=== PATIENT | female | born 1995 | race Caucasian/White ===

== ENCOUNTER 2017-05-08 22:09 | Inpatient (IN) | payer OTHER ==
[~2017-05-08] VITALS: Ht 177.8 cm; Wt 57.5 kg
[~2017-05-08 22:09] MED LIST: ALBU8.5H2 INHALATION
[2017-05-08 22:12] VITALS: BP 110/67; PULSE 122; RESP 16; O2SAT 100
--- NOTE | 2017-05-08 22:35 | ED.REPORT ---
HPI-Rash / Abscess Date of Service May 08, 2017 ED Provider: Dr. Mitchell Meyer The patient is a 22 year old female who presents to the ED c/o of four days of left arm swelling. Pt is a heroine user. Associated symptoms include fever. She denies chills. She was seen yesterday at the ED requesting Suboxone. Nursing Notes Stated Complaint: L ARM ABSCESS Chief Complaint: Skin Rash/Abscess Nursing Notes Reviewed: Yes Allergies: Coded Allergies: No Known Allergies (Unverified Allergy, Unknown, 05/08/17) Scheduled PRN Albuterol HFA (Proair HFA) 8.5 Gm Hfa.aer.ad 2 PUFFS INHALATION Q4H PRN PRN For Shortness of Breath General Time Seen by MD: 22:34 Chief Complaint Other (left arm swelling) Hx Obtained From: Patient Arrived By: Walk-in Onset Occurred: 4 days ago Symptom Duration: Since onset Location: : Arm Quality: Painful Severity: Current: Mild Recent Healthcare: No recent doctor visit, No recent hospitalization Similar Sx Previous: No Past Medical History Past Medical History healthy Past Surgical History None reported Smoking History Current Every Day Smoker Social History Drug Use: IV drugs, Meth Review of Systems Constitutional: Reports: Fever, Denies: Chills GI: Denies: Nausea, Vomiting Musculoskeletal: Reports: Extremity pain (left arm), Extremity swelling (left arm swelling) Skin: Reports Rash (right upper deltoid) Complete sys rev & neg: except as marked. Physical Exam Initial Vital Signs Vital Signs (First) Date Time Temp Pulse Resp B/P Pulse Ox O2 Delivery O2 Flow Rate FiO2 05/08/17 22:12 37.1 122 16 110/67 100 Room Air Initial VS: Reviewed General/Constitutional: Awake, Alert, Cooperative febrile Color / Condition: Positive: Rash present Rash / Lesion Notes: erythema and fluctuance of bulk of entire left deltoid cellulitis 10 inches by 5 inches left deltoid Rash / Lesion Location: Positive: Shoulder L Head / Eyes: Atraumatic, Normocephalic, PERRL, EOMI Respiratory / Chest: Atraumatic, Breath sounds NL, Breath sounds = bilat Heart Rate / Rhythm: Positive: Tachycardia Left Shoulder: Positive: Erythema present erythema and fluctuance of bulk of entire left deltoid left arm tense Neurologic: Oriented X3, Speech NL, No motor deficits Interpretation & Diagnostics Lab Results Interpretation Result Diagram: 05/08/17 2353 05/08/17 2353 Test 05/08/17 23:53 White Blood Count 19.5th/mm3 (3.8-10.1) Red Blood Count 4.29mil/mm3 (3.90-5.20) Hemoglobin 11.9g/dL (12.0-15.6) Hematocrit 34.3% (35.0-46.0) Mean Corpuscular Volume 80.0fL (81-100) Mean Corpuscular Hemoglobin 27.7pg (27.0-35.0) Mean Corpuscular Hemoglobin Concent 34.7% (32.0-37.0) Red Cell Distribution Width 13.2% (12.3-15.4) Platelet Count 335bil/L (150-400) Neutrophils (%) (Auto) 74.3% (40-74) Lymphocytes (%) (Auto) 14.2% (14-46) Monocytes (%) (Auto) 10.5% (4-12) Eosinophils (%) (Auto) 0.2% (0-5) Basophils (%) (Auto) 0.2% (0-3) Sodium Level 129mEq/L (134-144) Potassium Level 3.9mEq/L (3.5-5.2) Chloride Level 88mEq/L (97-108) Carbon Dioxide Level 26mmol/L (18-29) Blood Urea Nitrogen 8mg/dL (6-20) Creatinine 0.48mg/dL (0.57-1.00) Estimat Glomerular Filtration Rate 232mL/min (>59) Glucose Level 128mg/dL (60-99) Lactic Acid Level 1.1mmol/L (0.4-2.0) Calcium Level 9.1mg/dL (8.5-10.1) Total Bilirubin 0.4mg/dL (0.0-1.2) Aspartate Amino Transf (AST/SGOT) 15U/L (0-50) Alanine Aminotransferase (ALT/SGPT) 11U/L (0-32) Alkaline Phosphatase 109U/L (25-150) Total Protein 7.5g/dL (6.4-8.4) Albumin 3.4g/dL (3.4-5.0) Procedures Peripheral / EJ IV Start Peripheral / EJ IV Start: right proximal bicep IV start Time: 23:30 Procedure Performed by: ED physician IV Site: Upper arm right Skin Preparation Agent: Betadine Re-Eval/Medical Decision Med Decision/Clinical Course 2329: Pt rechecked. Trouble administering IV. Ultrasound guided IV start on right proximal bicep. 2357: Consulted with Dr. Howell. Will potentially need to admit pt for hospitalist assistance in the morning. 0129: Case discussed with Dr. Sands. She agrees with evaluation and accepts admit. I suspect that she has multiple abscesses in her left shoulder. Bedside drainage is not going to be feasible. She can barely tolerate a bedside ultrasound for the IV being placed. She is not been fasting and I do not feel comfortable sedating her at this time. She has a leukocytosis and tachycardia however she is most likely withdrawing from heroin as well. She will be admitted for broad-spectrum antibiotics and surgical consultation. I consulted with our surgeon windows phone developer and he will evaluate her in the morning. Hospitalist consulted for admission. Re-Evaluation/Progress : Time of Eval: 23:29 Re-Evaluation/Progress Note: Pt rechecked. Trouble administering IV. Ultrasound guided IV start on right proximal bicep. Consultation #1: Referral / Consult Name: Maikel Sorenson MD Consulted With: Hospitalist Call Returned at: 23:57 Note: Case discussed. Will need hospitalist assistance in the morning. Consultation #2: Referral / Consult Name: Samia Sands DO Consulted With: Hospitalist Call Returned at: 01:29 [employer]: Agrees with eval, Agrees with plan, Accepts admit Note: Case discussed. Dr. Sands accepts admit. Counseled Regarding: Diagnosis, Lab results, Need for admission Discharge & Departure Impression: Primary Impression: Cellulitis Site of cellulitis: extremity Site of cellulitis of extremity: upper extremity Laterality: left Qualified Code: L03.114 - Cellulitis of left upper limb Additional Impressions: Abscess Heroin abuse Disposition: Home Discharge Condition All VS Reviewed: Yes Condition: Stable Referrals: Kang Bravo MD (PCP) Scribe Attestation Portion of this note were transcribed by Kyra Crane. I, Dr. Meyer, personally performed the history, physical exam, and medical decision-making: I reviewed and confirmed the accuracy for the information in the transcribed note. Signed by: dora Goldstein, 05/09/17 0030 copies to: Kang Bravo MD, Todd P DO May 08, 2017 22:35 Kyra Crane May 08, 2017 22:47
[2017-05-08] MEDS ORDERED: Piperacillin-Tazo 3.375 Gm Inj 3.375 GM in Dextrose 5% Minibag Plus 50 ML IV ONE (22:40)
[2017-05-08] MEDS ORDERED: Vancomycin Inj 1,250 MG in 0.9% Sodium Chloride 250 ML IV ONE (22:48)
[2017-05-09] VITALS (13 sets, daily range): BP systolic 100–119; BP diastolic 53–72; PULSE 76–111; RESP 17–20; O2SAT 95–100
[2017-05-09] MEDS: HYDROmorphone 0.5 mg/0.5 mL iSecure Syringe IVPUSH PRN ×2 (00:02→01:00)
[2017-05-09 00:06] LABS: BASOPHILS % (AUTO) 0.2 % (0-3); EOSINOPHILS % (AUTO) 0.2 % (0-5); MONOCYTES % (AUTO) 10.5 % (4-12); Mean Corpuscular Hemoglobin 27.7 pg (27.0-35.0); NEUTROPHILS % (AUTO) 74.3 % (40-74); Platelet Count 335 bil/L (150-400)
[2017-05-09] MEDS ORDERED: Ondansetron 2 mg/mL 2 mL Inj IVPUSH PRN ×2 (01:30→09:25)
[2017-05-09] MEDS ORDERED: Polyethylene Glycol (PEG) 17 Gm Powder PO PRN (01:30)
[2017-05-09] MEDS ORDERED: Alum-Mag Hydrox-Simeth 30 mL Suspension PO PRN (01:30)
--- NOTE | 2017-05-09 02:30 | NUR ---
Admit Patient arrived at 0150 able to self transfer to bed. c/o 10/ pain, no orders at this time. Patient teaching about NPO status, states understanding. Oriented to room, accepting of items being locked up (locked up by security) and sharps container being removed (Removed by housekeeping), visiting hours, and no overnight visitors.
[2017-05-09] MEDS ORDERED: Lactated Ringer's 1,000 ML IV ONE ×2 (04:20→10:03)
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
[2017-05-09] MEDS ORDERED: Promethazine 50 mg/mL Inj IM PRN (05:10)
--- NOTE | 2017-05-09 05:53 | PCM.CONPHA ---
Subjective Date of Service: May 09, 2017 Requesting Provider: Tony Florian DO left arm pain History of Present Illness abscess/cellulitis Reason for Pharmacy Consult: Vancomycin Dosing Objective Assessment/Plan Assessment/Plan A/ - 22 y/o female with hx of IVDU admitted in for abscess/cellulitis on her arm; Vancomycin initiated for empirical coverage - Reported febrile, but afebrile at admission; WBC elevated with left shift @19.5, blood cultures, MRSA screen are pending - In ED, she received Vancomycin loading dose 1250mg, Zosyn also started and to be continued - IVF@150 mg/hr; surgery consult in the morning P/ - Give vancomycin 1G iv q8h. Trough level ordered before 4th dose @2130 today Pharmacy will continue to monitor and make necessary adjustment thank you for consulting clinical pharmacy in the care of this patient Tory Díaz May 09, 2017 05:53
[2017-05-09] MEDS: Vancomycin Inj 1,000 MG in IV Premix 1 EACH IV SCH ×2 (07:57→14:15)
[2017-05-09] MEDS: Piperacillin-Tazo 3.375 Gm Inj 3.375 GM in Dextrose 5% Minibag Plus 50 ML IV SCH ×4 (08:30→20:52)
[2017-05-09] MEDS ORDERED: Vancomycin Dose per Pharmacist XX SCH (08:30)
[2017-05-09] MEDS: Heparin 5,000 Unit/mL Inj SUBQ SCH ×2 (08:30→16:44)
[2017-05-09 08:33] LABS: BASOPHILS % (AUTO) 0.6 % (0-3); EOSINOPHILS % (AUTO) 0.3 % (0-5); MONOCYTES % (AUTO) 12.1 % (4-12); Mean Corpuscular Hemoglobin 27.3 pg (27.0-35.0); Mean Corpuscular Volume 80.9 fL (81-100); NEUTROPHILS % (AUTO) 74.7 % (40-74); Platelet Count 317 bil/L (150-400)
--- NOTE | 2017-05-09 09:05 | NUR ---
Off Unit Patient off floor to PACU via stretcher.
[2017-05-09] MEDS ORDERED: Lactated Ringer's 500 ML IV PRN (09:23)
[2017-05-09] MEDS ORDERED: Lactated Ringer's 1,000 ML IV SCH (09:23)
--- NOTE | 2017-05-09 09:23 | PCM.HPANE ---
Patient Data Date of Service: May 09, 2017 (0922) Surgeon Admitting Provider:Samia Sands DO Attending Provider:Narendra Ramírez MD Primary Care Physician:Krishna Other Provider: Reason for Visit Right Arm Cellulitis And Abscess Ht/WT & BMI Height (Feet): 5 Height (Inches): 10 Body Mass Index 18.15 Allergies Coded Allergies: No Known Allergies (Unverified Allergy, Unknown, 05/08/17) Past Anesthesia History Anesthesia History: Denies:: Abnormal Airway Diabetes History Hx Diabetes?: No MRSA MRSA: No Medications Reported Medications Albuterol HFA (Proair HFA)8.5 Gm Hfa.aer.ad2 Puffs INHALATION Q4H PRN For Shortness of Breath #1 INHALER 05/07/16 Discontinued Reported Medications [None] No Conflict Check 10/02/13 History History of ENT Problems?: No HEENT History: Denies:: Abnormal Airway Denture Type: None Teeth Condition: Within Normal Limits Hx of Heart Problems?: No Cardiovascular History: Denies:: Congestive Heart Failure Hypertension Hx of Respiratory Problem?: Yes Respiratory History: Positive for:: Dyspnea (New onset) Denies:: Asthma Pneumonia Tuberculosis Hx Neurologic Problems?: No Hx of GI Problems?: No Hx of Problems?: No Genitourinary History: Positive for:: Urinary Tract Infection Female Hx: Denies:: Currently Hx Musculoskeletal Problems?: No Psycho Social History: Positive for:: Anxiety Bipolar Disorder Hx Depression Denies:: Suicide Attempt Hx Surgeries?: No Hx Any Other Health Problems?: No History Blood Transfusions: Positive for:: Accept Blood Products? Denies:: Blood Transfusions Hx Diabetes: No Hx Alcohol Use: NoHx Substance Use: Yes (Heroin and Crystal) Smoking Status: Current Every Day Smoker Have You Smoked inLast 12 mo: YesApprox How Many Cigarettes/day: half pack a day Stop/Bang Treated for Sleep Apnea?: No S-Snoring: Do You Snore Loudly: No T-Tired: feel tired, fatigued: No O-Obsered: Observed not breath: No P-Blood Pressure: treated: No B- Body Mass Index > 35 kg/m2: No A- Age over 50: No N- Neck Large Circumference: No G- Gender Male: No TITI Total Score: 0 TITI Risk Assessment: Low Risk, <3 Yes Risk Assessment Category Category 1A: Patient has history of documented sleep apnea, and HAS NOT received any narcotic, sedative or anesthesia administration during this stay. Category 1B: Patient has history of documented sleep apnea, and HAS received any narcotic , sedative or anesthesia administration during this stay Category 2: Patient has SUSPECTED Obstructive Sleep Apnea, and HAS received any narcotic , sedative or anesthesia administration during this stay. Category 3: Patient has SUSPECTED Obstructive Sleep Apnea and HAS NOT received narcotic, sedative or anesthesia administration during this stay. Category 4: Outpatient in Procedural Areas with known sleep apnea or who screen positive for High Risk via the STOP/BANG questionnaire. Exam Exam Vital Signs Vital Signs Date Time Temp Pulse Resp B/P Pulse Ox O2 Delivery O2 Flow Rate FiO2 05/09/17 08:41 36.8 91 18 105/66 100 Room Air 05/09/17 05:02 106 05/09/17 02:04 36.9 109 18 117/72 98 Room Air General Appearance: Alert, Oriented X3, Cooperative HEENT/AIRWAY: MP 1 Lungs: Clear to Auscultation Heart: Exam Unremarkable Meds/Labs/Diagnostics Admission Meds Current Medications Piperacillin Sod/ Tazobactam Sod 3.375 gm/Dextrose/ Water 50 ml @ 100 mls/hr ONCE ONCE IV Last administered on 05/09/17 00:39; Start 05/08/17 at 22:40; Stop 05/08/17 at 23:09; Status DC Vancomycin HCl 1250 mg/Sodium Chloride 250 ml @ 166.667 mls/hr ONCE ONCE IV Last administered on 05/09/17 01:21; Start 05/08/17 at 22:48; Stop 05/09/17 at 00:17; Status DC Piperacillin Sod/ Tazobactam Sod 3.375 gm/Dextrose/ Water 50 ml @ 12.5 mls/hr Q8 IV Last administered on 05/09/17 08:45; Start 05/09/17 at 08:30 Lactated Ringer's 1,000 ml @ 150 mls/hr Q6H40M ONCE IV Last administered on 04:56; Start 05/09/17 at 04:20; Stop 05/09/17 at 10:59 Vancomycin/0.9 % Sod Chloride/ Premix (Vancomycin Inj/ IV Premix) 200 ml @ 133.333 mls/hr Q8H IV Last administered on 05/09/17t 07:57; Start 05/09/17 at 06:00 Labs Test 05/08/17 23:53 05/09/17 00:00 05/09/17 08:00 Lactic Acid Level 1.1mmol/L (0.4-2.0) Total Bilirubin 0.4mg/dL (0.0-1.2) Aspartate Amino Transf (AST/SGOT) 15U/L (0-50) Alanine Aminotransferase (ALT/SGPT) 11U/L (0-32) Alkaline Phosphatase 109U/L (25-150) Total Protein 7.5g/dL (6.4-8.4) Albumin 3.4g/dL (3.4-5.0) Erythrocyte Sedimentation Rate 58mm/hr (0-32) C-Reactive Protein 17.1mg/dL (0.0-0.5) White Blood Count 23.1th/mm3 (3.8-10.1) Red Blood Count 4.50mil/mm3 (3.90-5.20) Hemoglobin 12.3g/dL (12.0-15.6) Hematocrit 36.4% (35.0-46.0) Mean Corpuscular Volume 80.9fL (81-100) Mean Corpuscular Hemoglobin 27.3pg (27.0-35.0) Mean Corpuscular Hemoglobin Concent 33.8% (32.0-37.0) Red Cell Distribution Width 13.3% (12.3-15.4) Platelet Count 317bil/L (150-400) Neutrophils (%) (Auto) 74.7% (40-74) Lymphocytes (%) (Auto) 9.7% (14-46) Monocytes (%) (Auto) 12.1% (4-12) Eosinophils (%) (Auto) 0.3% (0-5) Basophils (%) (Auto) 0.6% (0-3) Sodium Level 133mEq/L (134-144) Potassium Level 4.5mEq/L (3.5-5.2) Chloride Level 94mEq/L (97-108) Carbon Dioxide Level 22mmol/L (18-29) Blood Urea Nitrogen 8mg/dL (6-20) Creatinine 0.49mg/dL (0.57-1.00) Estimat Glomerular Filtration Rate 226mL/min (>59) Glucose Level 111mg/dL (60-99) Calcium Level 9.2mg/dL (8.5-10.1) Plan Impression Patient chart reviewed, patient interviewed and anesthestic plan with risks, benefits, and alternatives discussed, and informed consent obtained. NPO per Anesth. Guidelines: Yes ASA Physical Status: ASA3 Severe Disease Anesthetic Plan: GA Bene/Risks/Altern/Consents: Yes HP Complete Prior to Induction: Yes Fred Tony MD May 09, 2017 09:23
[2017-05-09] MEDS ORDERED: HYDROmorphone 1 mg/mL Inj IVPUSH PRN (09:25)
[2017-05-09] MEDS ORDERED: fentaNYL-PF 50 mCg/mL 2 mL Inj IVPUSH PRN (09:25)
[2017-05-09] MEDS ORDERED: Phenylephrine 10,000 mCg/mL Inj IVPUSH PRN (09:25)
[2017-05-09] MEDS ORDERED: EPHEDrine Sulfate 50 mg/mL Inj IVPUSH PRN (09:25)
[2017-05-09] MEDS ORDERED: Dexamethasone 4 mg/mL Inj IVPUSH PRN (09:25)
[2017-05-09] MEDS ORDERED: MetoCLOpramide 5 mg/mL 2 mL Inj IVPUSH PRN (09:25)
[2017-05-09] MEDS ORDERED: Bupivacaine-MPF 0.5% 30 mL Inj INFILTRATE ONE (10:02)
--- NOTE | 2017-05-09 10:23 | PCM.ANEP1 ---
Post Anesthesia PACU Phase 1 Assessment Vital Signs 107/57, 80, 100%, 24, 37.3 Vital Signs Date Time Temp Pulse Resp B/P Pulse Ox O2 Delivery O2 Flow Rate FiO2 05/09/17 10:10 83 05/09/17 08:41 36.8 91 18 105/66 100 Room Air 05/09/17 05:02 106 Anesthetic Administered: GA Level of Alertness: Sleepy, easy to arouse CARRERA's with Equal Strength: Yes Pain: No Pain Scale Score: 0 Nausea or Vomiting: No CV Function & Hydration Stable: Yes Airway Device: none Oxygen Delivery: Simple Mask Lungs: Clear to Auscultation Dermatome Level: Full Sensation Summary uneventful GA PACU Phase 2 Assessment Complications: No Follow up Care: No Patient Instructions Provided: N/A Fred Tony MD May 09, 2017 10:22
--- NOTE | 2017-05-09 10:27 | CONS ---
[address] [address] CONSULTATION REPORT PATIENT: GABRIELE CASTILLO : 1995 MR#: [id number] ADMIT: 05/09/2017 JOB ID: [id number] DATE OF SERVICE: 05/09/2017 CHIEF COMPLAINT: A 22-year-old lady with a left arm abscess, seen in consultation at the request of Mitchell Meyer DO. HISTORY OF PRESENT ILLNESS: The patient is a 22-year-old lady with a history of IV drug abuse, who presented to the emergency department last night with left arm pain. She reported the arm becoming progressively red, painful and swollen over the few days since May 03. She reports injecting heroin, and also meth occasionally. She has not noticed any fever, chills or other constitutional symptoms. She is interested in getting back to help for the addiction, as she had tried with Suboxone previously. She reports she is currently living with her best friend's dad, but she is also comfortable with talking to her mom and dad, as she was hoping she could recover from this. OTHER MEDICAL PROBLEMS: 1. Posttraumatic stress disorder. 2. Depression and anxiety. 3. Obesity. PRIOR OPERATIONS: She reports prior incision and drainage procedures on her thigh, but I do not see any operating room reports. REVIEW OF SYSTEMS: Twelve point review of systems negative other than the pertinent positives noted in the history of present illness and other medical problems. SOCIAL HISTORY: She does smoke. She does use heroin and meth IV and muscling. MEDICATIONS AT HOME: None. ALLERGIES: No known drug allergies. INVESTIGATIONS: WBC 23.1, up from 19.5, hemoglobin 12.3, platelet count 317. Sodium 129, chloride 88, creatinine 0.48, glucose 128. PHYSICAL EXAM: A 22-year-old lady, in mild distress. Temperature 36.8, pulse 91, respiratory rate 18, blood pressure 105/66, saturating 100% on room air. Eyes: Normal pupils, conjunctivae. Ears, nose, and throat: Normal external appearance. Neck: No adenopathy or jugular venous distention. Respiratory: Normal effort, clear to auscultation. Cardiovascular: Regular rate and rhythm. Gastrointestinal: Abdomen is soft. Skin: Large area, 15 x 10 cm of erythema and induration in the left upper arm laterally, most consistent with an abscess, too tender for palpation. She also has a 3-4 cm area of mild erythema and induration on the right upper arm where she reports muscling, but no obvious fluctuance right now. Neurologic: No gross deficits. Psych: Alert. ASSESSMENT AND PLAN: Left upper arm abscess. She is on IV antibiotics. Recommended incision and drainage. After discussing the risks and benefits, and alternatives, she wished to proceed, and we will go ahead accordingly. She should be able to discharge as she gets better and we have a plan for her wound care.
--- NOTE | 2017-05-09 10:27 | PCM.SURGPO ---
Immediate Operative Note Date of Surgery: May 09, 2017 Pre Operative Diagnosis Left upper arm abscess Post Operative Diagnosis Left upper arm abscess Procedure Incision and drainage of left upper arm abscess Surgeon and Enterprise Application Architect Surgeon: Alexis Portillo MD Assistants: None Findings Close to 250ml of foul smelling pus Complications There were no periprocedural complications identified. Surgical Specimen Removed: Yes Specimen sent to Pathology: No Surgical Specimen description: Pus for culture Anesthetic Administered: GA Grafts, Implants: None Output, Estimated Blood Loss: 5 Blood Admin during surgery: No Alexis Portillo MD May 09, 2017 10:27
[2017-05-09] MEDS ORDERED: fentaNYL-PF 50 mCg/mL 2 mL Inj ONE (10:30)
[2017-05-09] MEDS ORDERED: Ondansetron 2 mg/mL 2 mL Inj ONE (10:30)
[2017-05-09] MEDS ORDERED: Propofol 10,000 mCg/mL 20 mL Inj ONE (10:30)
--- NOTE | 2017-05-09 12:30 | NUR ---
Back On Unit Patient back on floor from PACU in stable condition. Denies pain and nausea at this time. Dressing draining serous-sanguineous. Patient eating lunch. Tele SR 89. Roommate at bedside. Call light and tray table within reach. Will continue to monitor patient hourly.
[2017-05-09] MEDS ORDERED: Oritavancin Diphosphate 400 mg Vial IV ONE (15:40)
--- NOTE | 2017-05-09 16:13 | NUR ---
Pain Patient reported 05/09 pelvic pain. 5mg oxycodone and IV Tylenol given. Denies nausea. Patient repositions self for comfort. Call light and tray table within reach. Will continue to monitor patient hourly. Addendum: 05/09/17 at 1616 by SAURABH REYES RN Charted on wrong patient.
[2017-05-09] MEDS ORDERED: Oritavancin Diphosphate 1,200 MG in Dextrose 5% 1,000 ML IV ONE (17:00)
--- NOTE | 2017-05-09 19:33 | CONS ---
[address] [address] CONSULTATION REPORT PATIENT: GABRIELE CASTILLO : 1995 MR#: [id number] ADMIT: 05/09/2017 JOB ID: [id number] DATE OF SERVICE: 05/09/[address] Ramírez for this consult. REASON FOR CONSULTATION: Left deltoid abscess. INTERVAL HISTORY: The patient is a 22-year-old woman who injects drugs by the IM route. 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 Her past medical history is essentially negative except for a purulent abscess that developed around a follicle in the groin a couple of years ago but after I and D this resolved and no cultures were ever done. She reports that on or about May 01, she injected drugs using her right hand and injected it into her left deltoid. Before she injected, she took a sterile needle out of a package and then licked the needle and then inoculated her left deltoid with oral ladan. Within a couple days, she started to develop severe pain and swelling in the left deltoid area which eventually led her to this facility and admission and late last night through the ED. This morning, she was formally evaluated and has undergone incision and drainage. Aside from the pain and swelling in the shoulder, she did not have any fevers, chills, sweats, or shortness of breath. She really did not have any symptoms except localized severe pain. The incision drainage was done today by Dr. Portillo and appropriate cultures were done. These cultures reveal a polymicrobial ladan. The patient is currently receiving vancomycin and Zosyn and Dr. Ramírez has asked us regarding antibiotic recommendations. PAST MEDICAL HISTORY: 1. 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 2. History of a groin abscess which was likely staphylococcal, but no cultures were done. SOCIAL HISTORY: The patient smokes cigarettes but does not drink alcohol. She injects heroin and meth by the IM route on a frequent basis. She is originally from [place] but now lives in this area. She is unemployed. FAMILY HISTORY: Negative for tuberculosis in 1st degree relatives. REVIEW OF SYSTEMS: The patient has a headache. She has had no fevers, chills, or sweats. She denies acute visual change. No sore throat. She does have a minimal cough but not significant, and she is not short of breath. No nausea, vomiting, diarrhea. No dysuria. No swelling of the joints. No skin rash elsewhere except her painful left deltoid. The remainder of the review of systems is negative. PHYSICAL EXAMINATION: Reveals an afebrile young woman in no acute distress. Temp 36.9, pulse 76, respiratory rate 18, blood pressure 100/67. She is saturating well on room air. Head without trauma. Eyes without conjunctivitis. Oral cavity: No thrush, hairy leukoplakia or pharyngitis. Neck is supple. No adenopathy. Lungs clear. Cardiac tones: Regular rate and rhythm without any murmur. Abdomen soft and nontender. No ascites. No hepatosplenomegaly. She does not have a Silverman catheter. She does not have suprapubic fullness. Her extremities are without edema. Her neurologic exam grossly normal. She has a giant dressing over her left deltoid. Her right deltoid appears normal. Her hands are both perfused. She can move them well. The right hand is oddly cooler than the left but both arms appear viable. LABORATORIES: Include white count 20,000 last night, now 23 with left shift. ESR is 58. CRP is 17.1. Her creatinine 0.49. Her LFTs are normal. Micro from the abscess shows many polys, many gram-positive cocci and moderate gram-negative rods. No x-rays are available. IMPRESSION: This is a straightforward case of a young woman who licks needles and then injects into muscles. She now has a significant abscess of her left deltoid which has undergone incision and drainage this morning. Because of the history of needle licking, the differential diagnosis for organisms is drastically expanded. The possibilities here include Staph and strep as one would ordinarily expect as well as gram-negative organisms from the mouth which might include Eikenella or perhaps Capnocytophaga or other oral organisms. Also possible would be more typical enteric gram-negative rods or even anaerobes given the nature of the inoculation. Because the patient has a tenuous IV and patients matching this demographic are at high risk to leave the hospital prematurely, I would like to go ahead and give her a dose of Oritavancin. This drug has about a two week treatment duration and will serve to treat any Staph or strep. It will, unfortunately, not have any activity against the gram negatives, though I hope that we can find an oral drug such as Augmentin to start her on tomorrow for the gram negative organisms and then get her out of the hospital with the Oritavancin still on board from her single infusion and the Augmentin prescription. RECOMMENDATIONS: 1. Will discontinue the Vanco now. 2. One of the reasons to stop the Vanco now is it is very hard on peripheral veins especially in conjunction with Zosyn. 3. Will give a single dose of Oritavancin. 4. Because of the polymicrobial nature of the infection, will be forced to continue Zosyn at least through tomorrow. Should we lose the IV during the night, I would treat the patient with Augmentin. 5. The patient will require some additional laboratory studies including a hep B surface antigen as well as antibody to make sure that she is immune. 6. Human immunodeficiency virus. Will check a hepatitis B surface antibody, hep B surface antigen, human immunodeficiency virus and hepatitis C antibody. 7. Will continue to closely follow this interesting patient with you.
[2017-05-09] MEDS ORDERED: Buprenorphine 2 mg SL Tablet SL ONE (20:25)
[2017-05-09] MEDS ORDERED: cloNIDine 0.1 mg Tablet PO PRN (20:25)
[2017-05-09] MEDS ORDERED: LORazepam 0.5 mg Tablet PO PRN (20:25)
--- NOTE | 2017-05-09 21:32 | OP ---
[address] [address] OPERATIVE REPORT PATIENT: GABRIELE CASTILLO : 1995 MR#: [id number] ADMIT: 05/09/2017 JOB ID: [id number] DATE OF SURGERY: 05/09/2017 PREOPERATIVE DIAGNOSIS(ES): Left upper arm abscess. POSTOPERATIVE DIAGNOSIS(ES): Left upper arm abscess. PROCEDURE PERFORMED: Incision and drainage of left upper arm abscess. SURGEON: Alexis Portillo MD. TAKER OFF DRYING KILN: None. COMPLICATIONS: None. INDICATIONS: The patient is a 22-year-old girl with problems with IV drug abuse who presented with left upper arm pain and leukocytosis to 23,000. After discussing the risks, benefits, and alternatives, she comes in to the operating room today for incision and drainage of that abscess. PROCEDURE DETAILS: She was placed in a supine position and underwent smooth induction of general anesthesia, and then after that the left shoulder was propped up on a bump and the arm was prepped and draped in the usual sterile fashion. Surgical time-out was undertaken using safety checklist, and all were in agreement. I began by accessing the abscess with an 18-gauge needle and then sending the pus for culture. We then enlarged the incision and evacuated pus which was foul-smelling. After that, I got out an area of skin approximately 2 x 4 cm to give access to the abscess cavity and probed the cavity superiorly, inferiorly and anteroposteriorly to make sure all the pockets had been evacuated. After that, I used pressure for hemostasis and then packed the wound with moist Kerlix. Overall, the abscess cavity measured close to 20 cm superoinferiorly and 15 cm anteroposteriorly. After this, a dressing was placed on top and the patient was recovered from anesthesia and was taken to the recovery room in stable condition.
--- NOTE | 2017-05-10 01:38 | NUR ---
AMA PT decided at 2310 that she was going to leave AMA. IT should be noted that every intervention was attempted to keep pt in the hospital. At this time pt was throwing things in her room because of her "pain." PT also stooled in the bed while talking to this RN. PT had been given a dose of subutex and ativan to help the w/d symtpoms that pt stated she was having. PT was intermittently diaphoretic, nauseous, and in a lot of pain. The dressing to her left UE was changed externally as it was draining large amounts of sero-sang drainage. PRior to d/c pt did complete one full bag of abx. PT was no longer agreeable to staying in the hospital. PT stated "I need to go get high." RN explained that pt had taken subutex which would block any opiate effects. PT stated "I will eventually get high." RN enforced all of the things that may happen if pt left AMA. PT states she is aware of the risks and "doesnt care." PT denied any interest in complete drug cessation and stated she is not interested in participating in suboxone treatment. Dr Sands aware of pt leaving AMA. AMA consent signed by pt. Security escorted pt out of the hospital as pt stated she had drugs in her purse.
--- NOTE | 2017-05-10 02:09 | OP ---
[address] [address] OPERATIVE REPORT PATIENT: GABRIELE CASTILLO : 1995 MR#: [id number] ADMIT: 05/09/2017 JOB ID: [id number] DATE OF SURGERY: 05/09/2017 PREOPERATIVE DIAGNOSIS(ES): Left upper arm abscess. POSTOPERATIVE DIAGNOSIS(ES): Left upper arm abscess. PROCEDURE PERFORMED: Incision and drainage of left upper arm abscess. SURGEON: Alexis Portillo MD. PIPE AND TEST SUPERVISOR: None. INDICATIONS: The patient is a 22-year-old girl with a history of IV drug abuse who came in with severe left arm swelling with leukocytosis. After discussing the risks, benefits and alternatives, was brought to the operating room for incision and drainage. PROCEDURE DETAILS: She underwent smooth induction of general anesthesia. Left arm was circumferentially prepped and draped in the usual sterile fashion. Surgical time-out was undertaken using safety checklist and all were in agreement. I began by. INCOMPLETE DICTATION: Dictation ends here.
[2017-05-10] MEDS ORDERED: Vancomycin Serum Trough XX ONE (05:30)
--- NOTE | 2017-05-10 09:22 | PCM.DC.MED ---
Discharge Summary Date of Service May 10, 2017 Dates of Hospitalization Date of Hospital Admission May 09, 2017 at 00:43 Date of Discharge: May 10, 2017 Providers: Admitting Physician: Samia Sands DO Primary Care Physician: Krishna Attending Physician: Narendra Ramírez MD Diagnosis at Time of Discharge Diagnosis at Time of Discharge sepsis, acute, POA Acute Cellulitis with Abscess, Present on Admission IVDU, POA Mood Disorders, POA Consultations ID Dr Soriano surgeon Dr Portillo Procedures Invasive Procedures Date of Surgery: May 09, 2017 Pre Operative Diagnosis Left upper arm abscess Post Operative Diagnosis Left upper arm abscess Procedure Incision and drainage of left upper arm abscess Surgeon and Web Design Specialist Surgeon: Alexis Portillo MD Assistants: None Findings Close to 250ml of foul smelling pus Complications There were no periprocedural complications identified. Surgical Specimen Removed: Yes Specimen sent to Pathology: No Surgical Specimen description: Pus for culture Anesthetic Administered: GA Grafts, Implants: None Output, Estimated Blood Loss: 5 Blood Admin during surgery: No Alexis Portillo MD May 09, 2017 10:27 <Electronically signed by Alexis Portillo MD> 05/09/17 1027 Brief History per HPI 22 yo F with history of PTSD, Depression, and IVDU who presents to the ED for left arm pain. Patient reports that she noticed her left arm and shoulder become progressively red, painful, and swollen in the last few days. She has been injecting heroin frequently and also using meth occasionally. She last used heroin yesterday. She has not noticed any fever, chills, WONG, abd pain, n/v , CP, or SOB. She also has some mild pain of her right triceps region. She reports she mostly injects into her arms, but occasionally into her glutes and thighs. She states she is also interested in getting back on Suboxone therapy because she does not want to . She reports she currently lives with her best friend's dad, but would like to move back and live with her own father soon. She is currently unemployed. In the ED, she was tachycardic but afebrile. Her labs showed a leukocytosis of 19.5 and 74.3% neutrophils. Her lactic acid was 1.1. Blood cultures were drawn and she was started on IV Vancomycin and IV Zosyn in the ED. General surgery was consulted for I&D. Hospital Course 22 yo F with history of PTSD, Depression, and IVDU who presents to the ED for left arm abscess and cellulitis. # sepsis, acute, POA -secondary to cellulitis -treatment as below -patient left AMA # Acute Cellulitis with Abscess, Present on Admission Large tense erythematous area on LUE is likely a large abscess with cellulitis. There is also an early appearing abscess on the right deltoid region. had I&D patient left AMA # IVDU, POA patient left AMA # Mood Disorders, POA patient left AMA Exam Vital Signs (Last) Date Time Temp Pulse Resp B/P Pulse Ox O2 Delivery O2 Flow Rate FiO2 05/09/17 20:00 79 05/09/17 17:24 36.5 18 119/71 100 Room Air 05/09/17 10:25 10 Exam General: Well-developed female who appears emotionally labile and in pain HEENT: Normocephalic, atraumatic. External ears without defect. Pupils equal, round, and reactive to light and accommodation. Anicteric sclerae, Oropharynx free of erythema and cobble stoning with moist mucosa. Neck: Supple with full range of motion. No lymphadenopathy or thyromegaly. Cardiovascular: Tachycardic with regular rhythm with no murmurs, rubs, or gallops appreciated Pulmonary: Bibasilar rales noted, Normal respiratory effort with no use of accessory muscles. Abdomen: Bowel tones present. Soft, nontender, nondistended. No hepatosplenomegaly or masses appreciated. Extremities: Large patch of confluent swelling and erythema on left upper deltoid which is very tender to palpation and is very tense.There is also a moderate size area of swelling and erythema on the right triceps region with some tenseness Skin: Besides changes as noted in the arms, there are no other regions with rashes, skin is otherwise warm and dry. Neurological: Cranial nerves grossly intact. No focal weakness, unable to fully extend and move left arm due to pain and swelling. Psychiatric: Labile mood, is noted to be crying on and off throughout exam. Alert and oriented to person, place, and time. Test 05/08/17 23:53 05/09/17 00:00 05/09/17 08:00 Lactic Acid Level 1.1mmol/L (0.4-2.0) Total Bilirubin 0.4mg/dL (0.0-1.2) Aspartate Amino Transf (AST/SGOT) 15U/L (0-50) Alanine Aminotransferase (ALT/SGPT) 11U/L (0-32) Alkaline Phosphatase 109U/L (25-150) Total Protein 7.5g/dL (6.4-8.4) Albumin 3.4g/dL (3.4-5.0) Erythrocyte Sedimentation Rate 58mm/hr (0-32) C-Reactive Protein 17.1mg/dL (0.0-0.5) White Blood Count 23.1th/mm3 (3.8-10.1) Red Blood Count 4.50mil/mm3 (3.90-5.20) Hemoglobin 12.3g/dL (12.0-15.6) Hematocrit 36.4% (35.0-46.0) Mean Corpuscular Volume 80.9fL (81-100) Mean Corpuscular Hemoglobin 27.3pg (27.0-35.0) Mean Corpuscular Hemoglobin Concent 33.8% (32.0-37.0) Red Cell Distribution Width 13.3% (12.3-15.4) Platelet Count 317bil/L (150-400) Neutrophils (%) (Auto) 74.7% (40-74) Lymphocytes (%) (Auto) 9.7% (14-46) Monocytes (%) (Auto) 12.1% (4-12) Eosinophils (%) (Auto) 0.3% (0-5) Basophils (%) (Auto) 0.6% (0-3) Sodium Level 133mEq/L (134-144) Potassium Level 4.5mEq/L (3.5-5.2) Chloride Level 94mEq/L (97-108) Carbon Dioxide Level 22mmol/L (18-29) Blood Urea Nitrogen 8mg/dL (6-20) Creatinine 0.49mg/dL (0.57-1.00) Estimat Glomerular Filtration Rate 226mL/min (>59) Glucose Level 111mg/dL (60-99) Calcium Level 9.2mg/dL (8.5-10.1) Discharge Medications As needed Albuterol HFA (Proair HFA) 8.5 Gm Hfa.aer.ad 2 PUFFS INHALATION Q4H PRN PRN For Shortness of Breath (Reported) Followup Plan Disposition: left Narendra Pratt MD May 10, 2017 09:22
--- NOTE | 2017-05-10 12:03 | NUR ---
Social Work- Screening Pt is a 22 year old female admitted for right arm cellulitis and abscess 05/09/17. Per chart review pt injects heroin with last use on 05/08 and also uses crystal meth. Pt has history of suboxone. Pt has mental health history of depression/anxiety. Pt left AMA on 05/10/17 prior to ORTHOPEDIC TECH arriving to the floor. ABBY Mcfarlane
--- NOTE | 2017-05-11 15:26 | NUR ---
Wound care appt Urgent care called yesterday to make appt for pt. Pt urgently scheduled for 05/11/17 at 0830. Pt did not show for appt but then called and asked to be rescheduled for today, she is very concerned about size of wound and need for dressing change. Pt was accommodated and rescheduled for 1440. Patient instructed she needed to make the appt as there was no other option today or for the rest of the week. Patient verbalized understand.
== END 2017-05-09 23:10 | disposition left against medical advice (07) | DRG 872 ==
LOC: SED 22:09 → OSC 05-09 00:43
PROVIDERS: ADMIT Internal Medicine; ATTEND Internal Medicine
PROC: 0H9CXZX Drainage of Left Upper Arm Skin, External Approach, Diagnostic (ICD-10-PCS; principal; 2017-05-09 09:15)
DX: A41.9 Sepsis, unspecified organism (principal); L03.114 Cellulitis of left upper limb; F17.210 Nicotine dependence, cigarettes, uncomplicated; F39 Unspecified mood [affective] disorder; F11.10 Opioid abuse, uncomplicated; F15.10 Other stimulant abuse, uncomplicated; Z91.19 Patient's noncompliance with other medical treatment and regimen